=== PATIENT | female | born 1990 | race Caucasian/White ===

== ENCOUNTER 2022-07-10 15:52 | Outpatient (CLI) | payer OTHER, SELFPAY ==
[2022-07-10 17:23] LABS: Cholesterol* 169 mg/dL (90-199); Glucose* 88 mg/dL (60-115); Triglycerides* 67 mg/dL (40-149)
[2022-07-10 17:24] LABS: HDL Cholesterol* 62 mg/dL (>=50); LDL Cholesterol Calculated 94 mg/dL (<100)
[2022-07-10 17:44] LABS: Vitamin D 25 Hydroxy* 40 ng/mL (30-80)
== END 2022-07-10 15:53 | disposition home or self-care (01) ==
PROVIDERS: PCP Family Medicine; Visit Provider Registered Nurse
DX: Z01.419 Encounter for gynecological examination (general) (routine) without abnormal findings (principal); R53.83 Other fatigue; Z13.6 Encounter for screening for cardiovascular disorders; Z13.1 Encounter for screening for diabetes mellitus
CPT/HCPCS: 80061; 82306; 82947; 84443

== ENCOUNTER 2024-08-21 14:38 | Outpatient (CLI) | payer BC, SELFPAY | END 2024-08-21 14:39 | disposition home or self-care (01) | PROVIDERS: PCP Family Medicine; Visit Provider Family Medicine | DX: E66.9 Obesity, unspecified (principal); Z13.1 Encounter for screening for diabetes mellitus; Z13.29 Encounter for screening for other suspected endocrine disorder | CPT/HCPCS: 80048; 84439 ==